=== PATIENT | female | born 1980 | race African-American/Black ===

== ENCOUNTER 2021-02-16 23:58 | Emergency (ER) | payer SELFPAY ==
[~2021-02-16] VITALS: Ht 162.6 cm; Wt 81.2 kg
[2021-02-17] MEDS ORDERED: HALOPERIDOL LACTATE 5 MG/ML VIAL. ONE (00:07)
[2021-02-17] MEDS ORDERED: HALOPERIDOL LACTATE 5 MG/ML VIAL. IM ONE (00:15)
[2021-02-17 00:28] LABS: BASO # 0.1 x10^3/uL (0.0-0.2); BASO % 1 % (0-3); EOS # 0.1 x10^3/uL (0.0-0.7); EOS % 1 % (0-3); HEMATOCRIT 30.4 % (36.0-47.0); HEMOGLOBIN 9.9 g/dL (12.0-15.5); LYMPH # 3.2 x10^3/uL (1.0-4.8); LYMPH % 19 % (24-48); MEAN CORPUSCULAR HEMOGLOBIN 27 pg (25-35); MEAN CORPUSCULAR HGB CONC 33 g/dL (31-37); MEAN CORPUSCULAR VOLUME 83 fL (79-100); MONO # 1.2 x10^3/uL (0.0-1.1); MONO % 7 % (0-9); NEUT # 12.3 x10^3/uL (1.8-7.7); NEUT % 73 % (31-73); PLATELET COUNT 422 x10^3/uL (140-400); RED BLOOD COUNT 3.65 x10^6/uL (3.50-5.40); RED CELL DISTRIBUTION WIDTH 16.6 % (11.5-14.5); WHITE BLOOD COUNT 16.9 x10^3/uL (4.0-11.0)
--- NOTE | 2021-02-17 00:35 | PHYS DOC ---
Past Medical History Past Medical History: No Pertinent History (HAM GONZALEZ DO) Past Surgical History: No Surgical History (HAM GONZALEZ DO) Smoking Status: Unknown if ever smoked Alcohol Use: None Drug Use: Other (HAM GONZALEZ DO) General Adult EDM: Chief Complaint: MANIC BEHAVIOR HPI: HPI: 40-year-old female presents to the emergency department with agitated behavior after she was found by police acting agitated on the streets. She admits to richard g use that is undefined earlier today. She is agitated, not cooperative with staff, and not making congruent sense. She is a overall poor historian and cannot recall details of her history at this time. She does admit to using some sort of substance earlier today (HAM GONZALEZ DO) Review of Systems: Review of Systems: Further ROS is unobtainable secondary to patient's intoxication (HAM GONZALEZ DO) Heart Score: C/O Chest Pain: No (HAM GONZALEZ DO) Family History: Family History: unknown (HAM GONZALEZ DO) Current Medications: Current Medications Medications (Trade) Dose Ordered Sig/Yobani Start Time Stop Time Status Last Admin Dose Admin Haloperidol Lactate (Haldol Inj) 5 mg STK-MED ONCE 02/17/21 00:07 02/17/21 00:08 DC Lorazepam (Ativan Inj) 2 mg 1X ONCE 02/17/21 00:00 02/17/21 00:07 DC 02/17/21 00:12 2 MG (HAM GONZALEZ DO) Allergies: Allergies: Allergies Coded Allergies Type Severity Reaction Last Updated Verified No Known Drug Allergies 02/17/21 No (HAM GONZALEZ DO) Physical Exam: PE: General: Moderate distress, speaking in pressured sentences, not redirectable HEENT: Normocephalic, Normal hearing. Visual acuity grossly intact. Neck: Supple, Full range of motion without tenderness. Respiratory: Airway intact, normal phonation, vocalizing. No signs of accessory muscle use or respiratory distress. Cardiovascular: Extremities appear well perfused. Musculoskeletal: Normal range of motion. No deformity. Ambulatory. Integumentary: No pallor, No jaundice. Neurologic: Alert, Oriented. Moves all extremities independently. Psychiatric: Uncooperative, agitated, appears acutely anxious (HAM GONZALEZ DO) PE: Constitutional: Well developed, well nourished, no acute distress, non-toxic appearance HENT: Normocephalic, atraumatic Eyes: Conjunctiva normal, no discharge Neck: Normal range of motion, supple Lungs & Thorax: No respiratory distress, equal chest rise and fall Abdomen: Soft, no tenderness Skin: Warm, dry, no erythema, no rash Extremities: No tenderness, ROM intact, no edema Neurologic: Alert and oriented X 3, no focal deficits noted Psychologic: Affect normal, judgment normal (PEREZ,BRYAN Reilly DO) Current Patient Data: Labs: Laboratory Tests Test 02/17/21 00:20 White Blood Count 16.9 x10^3/uL (4.0-11.0) H Red Blood Count 3.65 x10^6/uL (3.50-5.40) Hemoglobin 9.9 g/dL (12.0-15.5) L Hematocrit 30.4 % (36.0-47.0) L Mean Corpuscular Volume 83 fL (79-100) Mean Corpuscular Hemoglobin 27 pg (25-35) Mean Corpuscular Hemoglobin Concent 33 g/dL (31-37) Red Cell Distribution Width 16.6 % (11.5-14.5) H Platelet Count 422 x10^3/uL (140-400) H Neutrophils (%) (Auto) 73 % (31-73) Lymphocytes (%) (Auto) 19 % (24-48) L Monocytes (%) (Auto) 7 % (0-9) Eosinophils (%) (Auto) 1 % (0-3) Basophils (%) (Auto) 1 % (0-3) Neutrophils # (Auto) 12.3 x10^3/uL (1.8-7.7) H Lymphocytes # (Auto) 3.2 x10^3/uL (1.0-4.8) Monocytes # (Auto) 1.2 x10^3/uL (0.0-1.1) H Eosinophils # (Auto) 0.1 x10^3/uL (0.0-0.7) Basophils # (Auto) 0.1 x10^3/uL (0.0-0.2) Laboratory Tests 02/17/21 00:20 Vital Signs: Vital Signs Date Time Temp Pulse Resp B/P (MAP) Pulse Ox O2 Delivery O2 Flow Rate FiO2 02/17/21 00:00 99.7 119 24 161/81 (107) 95 Room Air 99.7 (HAM GONZALEZ DO) Course & Med Decision Making: Course & Med Decision Making Patient was given Haldol and Ativan due to her uncooperative nature, elopement behavior and the fact that she does not have medical decision-making capacity secondary to her intoxication at this time. She will be observed until more sober Upon reassessment 0530, the patient is awake and alert, feels much better, and she is more appropriate. She is homeless, right in [place] from [facility], and has no relatives or friends in the area. The patient at this time does not have a safe place to go, the PAT team was consulted for possible p lacement at [facility] 0600: Transfer of care to Dr. Perez at this time Patient's current medical course discussed in rounds and patient is currently updated with medical plan Pending PAT team evaluation My Orders - HAM GONZALEZ DO Procedure Category Date Status Time Lorazepam Inj (Ativan PHA 02/17/21 Complete Inj) 00:00 Cbc W [employer] LAB 02/17/21 Complete 00:01 Basic Metabolic Panel LAB 02/17/21 Complete 00:01 Ethanol LAB 02/17/21 Complete 00:01 Drugs Of Abuse Ur LAB 02/17/21 Complete 00:01 Haloperidol Lactate PHA 02/17/21 Complete Inj (Haldol Inj) 00:15 Restraint Viol/Self JONO 02/17/21 In Process Age 18or> 00:04 Metoclopramide Vial PHA 02/17/21 Complete (Reglan Vial) 02:15 (HAM GONZALEZ DO) Course & Med Decision Making 0600- Sign out received from Dr. Gonzalez for patient with agitation after reported methamphetamine abuse. Awaiting PAT evaluation and recommendation. Labs obtained and posted to chart. Labs reviewed. UA not ordered. Hypokalemia addressed. UA with signs of infection. Empiric antibiotic given. Patient seen and evaluated by myself. PAT re-evaluation performed. Patient's mentation/ behavior improved as she appears clinically sober. PAT recommendation for placement for [facility]. [facility] accepting of patient. Discussed findings and plan with patient, who acknowledges understanding and agreement. (BRYAN PEREZ DO) Departure Departure Impression: Primary Impression: Methamphetamine abuse Additional Impressions: UTI (urinary tract infection) Qualified Codes: N30.00 - Acute cystitis without hematuria Hypokalemia Disposition: [address] [place] [address] ([facility]) Condition: STABLE Patient Instructions: Alcohol and Drug Addiction, Finding Treatment, Hypokal emia, Methamphetamine Abuse, Complications, Potassium Content of Foods, Urinary Tract Infection, [id number] Additional Instructions: Present directly to [facility], to seek help for your mental health and/or drug/alcohol abuse. Their number is Scripts Cephalexin (KEFLEX) 500 Mg Capsule 1 CAP PO TID for UTI for 7 Days, #21 CAP Prov: BRYAN PEREZ DO 02/17/21 HAM GONZALEZ DO Feb 17, 2021 00:35 BRYAN PEREZ DO Feb 17, 2021 16:37
[2021-02-17 00:40] LABS: CALCIUM 8.2 mg/dL (8.5-10.1); CREATININE 1.3 mg/dL (0.6-1.0); GFR 45.6; POTASSIUM 3.3 mmol/L (3.5-5.1)
[2021-02-17 00:58] LABS: BARBITURATES NEG (NEG); BENZODIAZEPINES POS (NEG); CANNABINOIDS NEG (NEG); COCAINE NEG (NEG); METHADONE NEG (NEG); OPIATES NEG (NEG); PHENCYCLIDINE NEG (NEG)
[2021-02-17 00:59] LABS: AMPHETAMINE/METHAMPHETAMINE POS (NEG)
[2021-02-17] MEDS ORDERED: METOCLOPRAMIDE HCL 10 MG/2 ML VIAL. IVP ONE (02:15)
[2021-02-17] MEDS ORDERED: METOCLOPRAMIDE HCL 10 MG/2 ML VIAL. ONE (07:24)
[2021-02-17] MEDS ORDERED: POTASSIUM CHLORIDE 10 MEQ TABLET.ER. PO ONE (09:00)
[2021-02-17 12:38] LABS: BILIRUBIN,URINE NEGATIVE (NEG); CLARITY,URINE CLEAR; COLOR,URINE YELLOW; NITRITE,URINE POSITIVE (NEG); PROTEIN,URINE NEGATIVE (NEG-TRACE)
[2021-02-17 13:01] LABS: BACTERIA,URINE MODERATE /HPF (0-FEW); RBC,URINE 0 /HPF (0-2); WBC,URINE 0 /HPF (0-4)
[2021-02-17] MEDS ORDERED: CEPHALEXIN 250 MG CAPSULE. PO ONE (13:30)
[2021-02-17 15:57] VITALS: BP 129/70
[2021-02-17] MEDS ORDERED: CEPH500C PO (16:33)
== END 2021-02-17 17:35 | disposition home or self-care (01) ==
LOC: ER 23:58 → EEVIPCON 23:58 → ER 02-17 17:35
DX: F15.10 Other stimulant abuse, uncomplicated (principal); N30.00 Acute cystitis without hematuria; E87.6 Hypokalemia; Z20.822 Contact with and (suspected) exposure to COVID-19
CPT/HCPCS: 36415; 80048; 80307; 81001; 81025; 83735; 85025; 87086; 87426; 96372; 99285; G0480; J1630; J2060; U0003; U0005